=== PATIENT | female | born 1960 | race Caucasian/White ===

== ENCOUNTER 2020-01-14 08:44 | Outpatient (CLI) | payer MEDICARE, MEDICAID ==
[2020-01-14 10:04] VITALS: BP 112/80
--- NOTE | 2020-01-14 10:04 | SLEEP CARE CONSULTATION ---
Information from patient questionnaire entered by Ana Ritchie. I have reviewed and concur with the information entered by Ana Ritchie. This document represents the service I personally performed and the decisions made by me, Erika Chew RN, MSN, GUNNER MATE. History of Present Illness Service Date and Time: 01/14/2020 0844 Reason for Visit: New patient Chief Complaint: reports: Unrefreshed sleep, Excessive daytime sleepiness, Fatigue, Frequent awakenings at night, Other (irregular sleep schedule ) Duration of Symptoms: Approximately 3 years noted after snf for medical disability Usual bedtime: [id number] Time it takes to fall asleep: 1-3 hours Snores at night: No (unknown sleeps alone) Observed to quit breathing while asleep: No Sleeps alone due to snoring: No (single) Number of times waking at night: 1-2 Reasons for waking at night: reports: Pain, Bathroom, Other (unknown and dogs waking her for unknown reason - do not need to go out to bathroom ). denies: Choking, Snoring, Gasping for air Toss, Turn, or Twitch while sleeping: No Recalls having dreams: No Usually gets out of bed at: [id number] Feels refreshed in the morning: No Morning headache: Yes (occasionally) Sleepy or fatigued during the day: Yes Ever fallen asleep while driving: Yes (years ago once only she went out of mily. none since) Takes day naps: Yes (1-3 hours in later morning most days) Dreams during day naps: No Prior sleep studies: No - Parasomnia Symptoms Ever been unable to move upon waking from sleep: Yes (once many years ago when ill needing ER treatment) Walks in sleep: No Talks in sleep: No Ever acted out dreams in sleep: No Ever felt weak in the knees when startled or emotional: No Bothered by creepy, crawly, restless sensations in legs: Yes (noted a few times in bed before sleep while watching TV - stretch helps ) Problems with memory or concentration: Yes Subjective Initial [place] Sleepiness Scale score: 21 Past Medical History Past Medical History: reports: Arthritis, Hypothyroidism, Anemia, Anxiety, Depression, Other (pericarditis - 3 years ago with recurrent episodes over 9 months with increase in weight from prednisone -1996 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 Patient is and lives in [place]. Have you smoked in the past 12 months: No Cigarettes per day (20/pack): 20 Years of smokin Quit date: 2017 Smoking Pack Years: 20.0 Alcohol use: Yes Alcohol amount and frequency: 1/2 glass wine occasionally Caffeine use: Yes Caffeine amount and frequency: 1-2 cups morning most days Family History Family history of sleep disordered breathing: Yes Family Hx Sleep Apnea: Mother: Snoring, Sleep apnea - Treated, Father: Snoring, Sleep apnea - Treated Allergies and Home Medications Known drug allergies: Yes (erythromycin, sulfa, doxycline, amoxicillin, methocarbamol, fioricet etc) Drug allergies reviewed: Yes (add - liquid percocet, adhesives ) Home medication list reviewed: Yes Allergy and home medication list: levothyroxin 88mcg daily Vivelle Dot 0.05mg weekly vitamin D 2000 per drop - 1-2 drops daily Zoloft 100mg bedtime antihistamine as needed - rotates Zyrtec, Connie, Claritin, Benadryl, Flonase - currently singulair xanax low dose as needed Review of Systems Weight gain over past 5 years: 25-30 Cardiovascular: reports: leg or foot swelling (*leg bilateral - the past year - no treatment at this time - followed by PCP). denies: high blood pressure, palpitations (intermittently not associated with activity ), chest pain, irregular heart rate or pulse, have to sleep sitting up, other Respiratory: reports: shortness of breath, sputum production (post nasal drainage). denies: wheeze, chronic cough Gastrointestinal: reports: heartburn (in response to ingestion of spicy foods ). denies: difficulty swallowing, nausea, vomitting, diarrhea, abdominal pain, other Urinary: denies: incontinence, frequency, urgency, impotence, other Neurological: reports: disorientation (since chemo in 1995 intermittently with increase since 2018 with pericarditis ), gait or balance problems (related to muscle skeletal discomfort). denies: headaches, seizure, head trauma, speech dysfunction, fainting or unconsciousness, other Psychiatric: reports: anxiety, depression (no thoughts of hurting self or others). denies: Attention Deficit Hyperactivity, mood disorder, claustrophobia, other Ear/Nose/Throat: reports: nasal congestion, sinus problems, wisdom teeth removed. denies: nose bleeds, dry mouth/throat, hoarseness, injury to nose, tonsillectomy, other Endocrine: reports: thyroid disease, sluggishness, too hot or cold (*cold), unexplained weakness. denies: history of goiter, excessive thirst, increased appetite, increased urination, other Musculoskeletal: reports: joint pain, neck pain, back pain, muscle pain or cramping. denies: joint swelling, mobility problems, other Immunologic: reports: sneezing, allergies to food or environment (*environment). denies: rash, itching, other Physical Exam Blood Pressure: 112/80 Cuff size: regular Heart Rate: 80 O2 Saturation: 95 Height: 5 ft 4.5 in Weight: 159 lb Body Mass Index: 26.9 BMI Classification: Overweight Neck circumference: 13.5 Uvula visualization: 100% Mallampati Class I Tongue: normal in size Tonsils: small Chin and jaw: normal size and position Neck: normal w/o lymphadenopathy or thyromegaly Heart: regular rate and rhythm Lungs: clear bilaterally Abdomen: soft, non-tender Extremities: no edema or clubbing Impression and Plan 1. Suspected Obstructive Sleep Apnea-Hypopnea Syndrome, as suggested by a history of morning headache, frequent awakening during the night, unrefreshed sleep, cognitive impairment, and excessive daytime sleepiness. She is single and sleeps alone so is unaware if snores or has pauses in her breathing. She is concerned though that her dogs wake her intermittently in sleep for unknown reason. Her parents both have apnea and are treated with CPAP. Her sleep concerns began with her medical snf, irregular sleep schedule and increase in weight. Narrow oropharynx and obesity are common predisposing factors for obstructive sleep apnea-hypopnea syndrome. I recommend proceeding to polysomnography to confirm the diagnosis and to assess severity. If the patient has significant sleep disordered breathing, a manual CPAP titration study will also be performed to find the optimal treatment pressure. I informed the patient of what the sleep studies involve and after some discussion, obtained agreement to proceed. The pathophysiology of obstructive sleep apnea-hypopnea syndrome was discussed with the patient and health risks of cardiovascular and cerebrova scular disease if not treated. AAS brochure for obstructive sleep apnea- hypopnea syndrome given and reviewed. Risks of drowsy driving discussed in detail and patient advised to avoid long distance driving and to focus puller at the first sign of drowsiness. Patient agreed to plan. For her weight concerns, she is advised to discuss a referral to a modeler from her PCP. 2. Insomnia that could be related to her irregular sleep schedule, time in bed watching TV before sleep, heavy meal before sleep, long naps during the day, waking and looking at clock. She is advised to regulate wake time with alarm and clock covered. In addition she is to try to limit naps to one hour, go to bed 15-16 hours after wake time but only if sleepy as long naps can affect her night time sleep efficiency. She is advised to keep TV out of bedroom to associate sleep with the bed and sleep. I advised her to consider changing bedtime ritual to reading something relaxing instead of alerting TV program. In addition the electronic light into eyes from her TV can affect her endogenous melatonin level. I will have her complete another sleep diary for 2 weeks to assist implementation of new sleep schedule and further evaluation to be evaluated when returns for results of sleep study. * Schedule polysomnography * Implement methods to reduce insomnia * Avoid long distance driving or driving when feeling sleepy. * Avoid alcohol, sedative and muscle relaxant around bedtime. * Attempt to lose weight. * Review instructions provided by trained office staff on how to prepare for the sleep study. * Return for follow-up after sleep study completed. Visit Type: In Office Time Spent with Patient (minutes): 60 Provider Statement: I spent 100% of the Face to Face Visit with the patient with greater than 50% spent counseling the patient and coordination of care.
== END 2020-01-14 08:45 | disposition home or self-care (01) ==
LOC: SC 08:44
PROVIDERS: ATTEND Nurse Practitioner Family
DX: G47.10 Hypersomnia, unspecified (principal); R51 Headache; G47.8 Other sleep disorders; R41.89 Other symptoms and signs involving cognitive functions and awareness; E66.3 Overweight; Z68.26 Body mass index [BMI] 26.0-26.9, adult
CPT/HCPCS: 99205; G0463; 99212

== ENCOUNTER 2020-03-06 20:41 | Outpatient (CLI) | payer MEDICARE, MEDICAID | END 2020-03-06 20:42 | disposition home or self-care (01) | LOC: SC 20:41 | PROVIDERS: ATTEND Nurse Practitioner Family | DX: G47.61 Periodic limb movement disorder (principal); G47.10 Hypersomnia, unspecified; R53.83 Other fatigue; G47.8 Other sleep disorders; F51.04 Psychophysiologic insomnia; R41.89 Other symptoms and signs involving cognitive functions and awareness; E66.3 Overweight; F32.9 Major depressive disorder, single episode, unspecified; Z68.26 Body mass index [BMI] 26.0-26.9, adult | CPT/HCPCS: 95810 ==

== ENCOUNTER 2020-03-14 09:19 | Outpatient (CLI) | payer MEDICARE, MEDICAID ==
--- NOTE | 2020-03-14 10:07 | SLEEP CARE CONSULTATION ---
Information from patient questionnaire entered by Yovana Ibanez. I have reviewed and concur with the information entered by Yovana Ibanez. This document represents the service I personally performed and the decisions made by me, Erika Chew RN, MSN, DE[employer] AND [employer]ARD OF HEARING TEACHER. History of Present Illness Service Date and Time: 03/14/2020918 Initial [place] Sleepiness Scale score: 21 (in 2019) Current [place] Sleepiness Scale score: 12 Additional HPI information: ABIGAIL PAINTER returns for follow up and results of the recently performed home sleep study. Study results shown and reviewed and discussed. I explained the pathophysiology behind obstructive sleep apnea. Patient does not have significant sleep disordered breathing but has severe elevated AHI in supine position. Patient also has light to loud snoring. However, patient did not sleep well that night and was awake almost half the time due to anxiety about sleeping in a new environment and right leg pain despite change in position. Sleep Study - Results Type of Sleep Study: Polysomnography Prior sleep studies: No Polysomnography/Home Sleep Study results: The quality of the study is good. The patient had reduced sleep efficiency due to sleep onset insomnia and prolonged awakenings during the night. The sleep architecture was abnormal for sleep fragmentation and reduced amount of time spent in REM sleep. Respiratory monitoring showed no significant sleep disordered breathing (AHI = 3.1) or hypoxia ([place] oxygen saturation of 87% and only 1.2% to the total sleep time was spent with oxygen saturation below 90%). The few respiratory events occurred almost exclusively during the very limited supine sleep (supine AHI = 34.3; non-supine = 1.76). Snore was light to loud in intensity. There was severe periodic leg movement of sleep contributing to the sleep fragmentation. Cardiac rhythm was normal sinus rhythm without significant arrhythmia. No abnormal behavior (parasomnia) observed during the night. Allergies and Home Medications Known drug allergies: Yes Home medication list reviewed: No (no changes ) Review of Systems Review of systems same as previous: Yes Physical Exam Blood Pressure: 108/74 Cuff size: regular Heart Rate: 65 O2 Saturation: 98 Height: 5 ft 4.5 in Weight: 159 lb 12.8 oz Body Mass Index: 27.0 BMI Classification: Overweight Impression and Plan 1. Snoring but no significant sleep disordered breathing except in supine position. However, she did not sleep well that night due to different environment and right hip pain despite adjustment of position for comfort. Thus I recommend a home sleep study for further evaluation of possible sleep disordered breathing in her home environment where she is more comfortable to rule out if cause of her morning headache, frequent nocturnal awakenings, unrefreshed sleep, and excessive daytime sleepiness. Patient agreed with plan. Since her apnea is primarily supine, she is advised to avoid sleeping on her back with pillow positioning until her home sleep study. She is advised to try to sleep on her back for sleep study for part of the time for evaluation to help determine treatment options if positive. Patient advised that often weight loss will reduce snoring as well as apnea risk. 2.Periodic limb movement, severe, that did fragment patients sleep primarily one leg on 5 minute tracing noted in report. Periodic limb movement of sleep (PLMS) is characterized by episodes of repetitive limb movements that occur during sleep and usually involve the lower limbs. The etiology is unknown but can be associated with restless leg syndrome (RLS), neuropathy, spinal cord diseases, kidney disease, rheumatological disorders, narcolepsy, obstructive sleep apnea, and REM sleep behavior disorder. Other factors that can increase PLMS and/or RLS are heredity and iron deficiency as reflected by a low serum ferritin level below 50 to 75mcg / L. Several medications can precipitate or aggravate PLMS such as selective serotonin re-uptake inhibitor antidepressants, tricyclic antidepressants, lithium, and dopamine receptor antagonists with the exception of bupropion. Caffeine can also aggravate PLMS and should be avoided. Sleep hygiene methods can also improve sleep as well as lifestyle changes such as regular exercise. Patient was advised to follow up with her PCP for further evaluation of her right leg pain and agreed with plan. * Schedule home sleep study * Avoid long distance driving or driving when feeling sleepy. * Avoid alcohol, sedative and muscle relaxant around bedtime. * Attempt to lose weight. * Review instructions provided by trained office staff on how to prepare for the sleep study. * Return for follow-up after sleep study completed. Visit Type: In Office Time Spent with Patient (minutes): 32 Provider Statement: I spent 100% of the Face to Face Visit with the patient with greater than 50% spent counseling the patient and coordination of care.
[2020-03-14 10:08] VITALS: BP 108/74
== END 2020-03-14 09:20 | disposition home or self-care (01) ==
LOC: SC 09:19
PROVIDERS: ATTEND Nurse Practitioner Family
DX: R06.83 Snoring (principal); G47.61 Periodic limb movement disorder; G47.10 Hypersomnia, unspecified; G47.8 Other sleep disorders; R51 Headache; R41.89 Other symptoms and signs involving cognitive functions and awareness; E66.3 Overweight; Z68.27 Body mass index [BMI] 27.0-27.9, adult
CPT/HCPCS: 99214; G0463; 99212

== ENCOUNTER 2020-03-16 19:30 | Outpatient (CLI) | payer MEDICARE, MEDICAID | END 2020-03-16 19:31 | disposition home or self-care (01) | LOC: SC 19:30 | PROVIDERS: ATTEND Internal Medicine Pulmonary Disease | DX: R09.02 Hypoxemia (principal); G47.10 Hypersomnia, unspecified; G47.8 Other sleep disorders; R51 Headache; R41.89 Other symptoms and signs involving cognitive functions and awareness; R06.83 Snoring; F32.9 Major depressive disorder, single episode, unspecified; E66.3 Overweight; Z68.29 Body mass index [BMI] 29.0-29.9, adult | CPT/HCPCS: G0399 ×2; 95806 ==

== ENCOUNTER 2020-04-06 09:05 | Outpatient (CLI) | payer MEDICARE, MEDICAID ==
[2020-04-06 10:23] VITALS: BP 100/68
--- NOTE | 2020-04-06 10:23 | SLEEP CARE CONSULTATION ---
Information from patient questionnaire entered by Hipolito Byrne. I have reviewed and concur with the information entered by Hipolito Byrne. This document represents the service I personally performed and the decisions made by me, Erika Chew RN, MSN, CRISIS INTERVENTION COUNSELOR. 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 She was unable to sleep very much with her polysomnography. The patient was informed of sleep study findingss. Patient does not have significant sleep disordered breathing but has elevated AHI in supine position so advised positional therapy. Methods to achieve positional management therapy were discussed; such as, positioning with pillows, wearing a T-shirt with tennis balls sewn into the back, Rematee shirt, Zzomba belt, Sleep Noodle and Slumberbump belt. Patient advised how weight gain could increase the risk of developing sleep apnea in the future. I strongly encouraged the patient to lose weight. Patient counseled not drink alcohol less than 4 hours before bedtime as it can increase snoring and apnea. Patient was cautioned about risks of drowsy driving until sleepiness symptoms resolve. Patient denies drowsy driving. Patient was not able to follow up with PCP for further evaluation of right leg pain causing increase of PLMS night of polysomnography. Sleep Study - Results Type of Sleep Study: Home sleep study Prior sleep studies: No Polysomnography/Home Sleep Study results: Physician Impression: The quality of the study is good. The length of the study is adequate (> 240 minutes). Please also see the tabulated and graphic data. 1. No significant sleep-disordered breathing, with an AHI of 4.1/hr and zhou SaO2 of 84%. During the study, the patient had 13 apneas (13 obstructive, 0 central, 0 mixed) and 25 hypopneas. The longest episode lasted 99.5 seconds. The few respiratory events occurred more frequently during supine sleep (supine AHI was 6.6 and non-supine, 1.00). 2. Hypoxemia (ICD-10 R09.02), mild, with the lowest oxygen saturation of 84 % and 241.1 minutes with SaO2 under 90%. Baseline oxygen saturation was normal (Average oxygen saturation was 90%). Allergies and Home Medications Known drug allergies: Yes Home medication list reviewed: No (no changes ) Physical Exam Blood Pressure: 100/68 Heart Rate: 74 O2 Saturation: 97 Height: 5 ft 4.5 in Weight: 160 lb 12.8 oz Body Mass Index: 27.1 BMI Classification: Overweight Impression and Plan 1. No significant sleep disordered breathing except in supine position with AHI of 6.6 supine and 1.1 non supine. Currently patient is using positional management therapy with pillow positioning and is not waking on her back. She is not waking any more refreshed. Her morning headache persists and seems increased when environmental allergies or emotional concerns. She takes singular for her allergies, no inhaler. Patient advised to lose some weight to reduce apnea risk and consider a diet consultation referral from PCP with rationale discussed. Follow up as needed for any further sleep concerns. 2. Hypoxemia with oxygen saturation below 90% 241 minutes. low baseline oxygen satuaration level. Perhaps this is the cause of her morning headache. Consider underlying cardiopulmonary disorders such as COPD, congestive heart failure, obesity hypoventilation, etc. and urther work up with PFTs, ABGs. Patient advised to follow up with PCP for further evaluation and to consider a pulmonary consult. Patient agreed with plan. * Follow up with PCP for referral to [employer] payroll consultant and further evaluation of hypoxemia. * Consider pulmonary consult. * Attempt to lose weight * Avoid alcohol consumption near bedtime * The patient is cautioned about driving until sleepiness is completely resolved. * Return as needed. Visit Type: In Office Time Spent with Patient (minutes): 30 Provider Statement: I spent 100% of the Face to Face Visit with the patient with greater than 50% spent counseling the patient and coordination of care.
== END 2020-04-06 09:06 | disposition home or self-care (01) ==
LOC: SC 09:05
PROVIDERS: ATTEND Nurse Practitioner Family
DX: R09.02 Hypoxemia (principal); E66.3 Overweight; Z68.27 Body mass index [BMI] 27.0-27.9, adult
CPT/HCPCS: 99214; G0463; 99212